=== PATIENT | female | born 1990 | race American Indian/Alaskan Native ===

== ENCOUNTER 2016-04-18 17:55 | Outpatient (CLI) | payer MEDICAID ==
[2016-04-18 18:21] VITALS: BP 121/63
[2016-04-18] MEDS ORDERED: LACTATED RINGERS 1,000 ML IV ONE (18:28)
[2016-04-18 20:19] LABS: Bacteria,Urine 1+ /HPF (Negative); Bilirubin,Urine NEG (Negative); Blood,Urine NEG (Negative); Ketones,Urine NEG (Negative); Leukocyte Esterase,Urine MOD (Negative); Mucus,Urine 2+ /HPF; Nitrite,Urine NEG (Negative); Urobilinogen,Urine < 2.0 mg/dL (<2.0)
--- NOTE | 2016-04-19 07:48 | Ultrasound Report ---
OB LIMITED INDICATION: Cervical length. COMPARISON: 03/09 2016 TECHNIQUE: Transabdominal grayscale ultrasound with Doppler interrogation. Gestation: Ludwig Heart Rate: 137 BPM Cervical length: 3.3 cm (Normal > 3 cm)
== END 2016-04-18 21:52 | disposition home or self-care (01) ==
LOC: TRG 17:55
PROVIDERS: ATTEND Obstetrics & Gynecology
DX: O47.9 False labor, unspecified (principal); Z3A.00 Weeks of gestation of pregnancy not specified
CPT/HCPCS: 36415; 76815; 81001; 82731; J7120

== ENCOUNTER 2016-05-02 21:53 | Outpatient (CLI) | payer MEDICAID ==
[2016-05-02] MEDS ORDERED: LACTATED RINGERS 500 ML IV ONE (22:48)
[2016-05-03 00:28] LABS: Bacteria,Urine 2+ /HPF (Negative); Bilirubin,Urine NEG (Negative); Blood,Urine SM (Negative); Ketones,Urine NEG (Negative); Leukocyte Esterase,Urine LG (Negative); Nitrite,Urine NEG (Negative); Protein,Urine <15 mg/dL mg/dL (Negative); Urobilinogen,Urine < 2.0 mg/dL (<2.0)
== END 2016-05-02 23:43 | disposition home or self-care (01) ==
LOC: TRG 21:53
PROVIDERS: ATTEND Obstetrics & Gynecology
DX: O47.9 False labor, unspecified (principal); Z3A.00 Weeks of gestation of pregnancy not specified
CPT/HCPCS: 81001

== ENCOUNTER 2016-05-05 07:44 | Inpatient (IN) | payer MEDICAID ==
[2016-05-05] MEDS ORDERED: LACTATED RINGERS 500 ML IV ONE (08:13)
[2016-05-05 09:02] LABS: Basophils % (Auto) 0.5 % (0.0-1.8); Eosinophils % (Auto) 1.9 % (0.0-4.3); Hematocrit 29.2 % (30.3-42.9); Mean Corpuscular HGB Conc 31 % (30-34); Mean Corpuscular Volume 75 fl (79-97); Platelet Count 207 K/mm3 (140-440); Red Blood Count 3.88 M/mm3 (3.65-5.03); White Blood Count 11.4 K/mm3 (4.5-11.0)
[2016-05-05 09:17] LABS: Mean Corpuscular Hemoglobin 23 pg (28-32); Red Cell Distribution Width 21.3 % (13.2-15.2)
--- NOTE | 2016-05-05 11:06 | History and Physical Report ---
History of Present Illness Date of examination: 05/05/16 Date of admission: 05/05/16 10:41 Chief complaint: Leaking fluid since 0630 History of present illness: Pt is a 26yo BF EDC 06/04/16; EGA 35 5/7 weeks presents to L&D complaining of SROM clear fluid at 0630 today followed by irregular contractions. Ob u/s showed VINEET 8.3, Cephalic EFW 2980gms and has obvious gross leaking on exam. She received care at [facility] since 14 weeks and course has been unremarkable except for admission for cervical insufficiency earlier during the not requiring a cervical cerclage. records are available and GBS is unknown. 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 History: herpes Family/Genetic History: diabetes, heart disease, hypertension Social history: no significant social history, single - Obstetrical History Expected Date of Delivery: 06/04/16 Actual Gestation: 35 Week(s) 5 Day(s) : 1 Medications and Allergies Allergies Allergy/AdvReac Type Severity Reaction Status Date / Time No Known Allergies Allergy Verified 05/05/16 08:09 Home Medications Medication Instructions Recorded Confirmed Last Taken Type Pnv with Ca,No.72/Iron/FA [Pnv 1 tab PO DAILY 04/18/16 05/05/16 05/04/16 09:00 History Plus Multivit Tab] 1 Review of Systems All systems: negative - Vital Signs Vital signs: Vital Signs Pulse Pulse Ox 104 H 97 05/05/16 08:05 05/05/16 08:05 Temp Pulse Resp BP Pulse Ox 98.9 F 89 18 124/75 97 05/05/16 08:17 05/05/16 09:35 05/05/16 08:17 05/05/16 08:06 05/05/16 09:35 - Physical Exam Breasts: Positive: deferred Cardiovascular: Regular rate Lungs: Positive: Clear to auscultation Abdomen: Positive: normal appearance, soft Genitourinary (Female): Positive: normal external genitalia Vagina: Positive: normal moisture Uterus: Positive: enlarged Extremities: Positive: normal - Obstetrical FHR: category 1 Uterine Contraction Monitor Mode: External Cervical Dilatation: 4 Cervical Effacement Percentage: 50 station: -2 Uterine Contraction Pattern: Irregular Uterine Tone Measurement Phase: Contraction Uterine Contraction Intensity: Mild Results Result Diagrams: 05/05/16 08:28 Abnormal lab results 05/05/16 Range/Units 08:28 WBC 11.4 H (4.5-11.0) K/mm3 Hgb 9.0 L (10.1-14.3) gm/dl Hct 29.2 L (30.3-42.9) % MCV 75 L (79-97) fl MCH 23 L (28-32) pg RDW 21.3 H (13.2-15.2) % Seg Neutrophils % 70.2 H (40.0-70.0) % Seg Neutrophils # 8.0 H (1.8-7.7) K/mm3 All other labs normal. Ultrasound: report reviewed ([place]wig, Cephalic, VINEET 8.3, EFW 2980gms) Assessment and Plan - Patient Problems (1) 35 weeks gestation of Diagnosis Date: 05/05/16 Current Visit: Yes Status: Acute Plan to address problem: A: IUP @ 35 5/7 weeks PPROM - stable Unknown GBS P: Admit to L&D for expectant vaginal delivery IV Ampicillin (2) premature rupture of membranes (PPROM) with onset of labor after 24 hours of rupture in third trimester, antepartum Diagnosis Date: 05/05/16 Current Visit: Yes Status: Acute
[2016-05-05] MEDS ORDERED: SUBLIMAZE IV PRN (11:19)
[2016-05-05] MEDS ORDERED: BRETHINE SUB-Q PRN (11:19)
[2016-05-05] MEDS ORDERED: POLYCILLIN/NS 2 GM/100 ML 100 ML IV ONE (11:19)
[2016-05-05] MEDS ORDERED: MINERAL OIL PO PRN (11:19)
[2016-05-05] MEDS ORDERED: BRETHINE IVP PRN (11:19)
[2016-05-05] MEDS ORDERED: NARCAN 0.4 MG/1 ML IV PRN (11:19)
[2016-05-05] MEDS ORDERED: ZOFRAN IV PRN ×2 (11:19→21:03)
[2016-05-05] MEDS ORDERED: STADOL IV PRN (11:19)
[2016-05-05] MEDS ORDERED: PITOCin/NS 30 UNIT/500ML 500 ML IV SCH (12:00)
[2016-05-05] MEDS ORDERED: PITOCin/NS 20 UNIT/1000ML DRIP 1,000 ML IV SCH ×2 (12:00→22:00)
[2016-05-05] MEDS: PITOCin/NS 30 UNIT/500ML 500 ML IV SCH ×6 (12:42→17:42)
[2016-05-05] MEDS: LACTATED RINGERS 1,000 ML IV SCH ×3 (13:15→16:17)
[2016-05-05] MEDS ORDERED: ePHEDrine SULFATE ONE (14:36)
[2016-05-05] MEDS: ePHEDrine SULFATE IV PRN ×2 (15:14→15:20)
[2016-05-05] MEDS ORDERED: ePHEDrine SULFATE IV PRN (15:14)
--- NOTE | 2016-05-05 15:15 | Anesthesia Consultation ---
Anesthesia Consult and Med Hx Date of service: 05/05/16 - Airway Anesthetic Teeth Evaluation: Good ROM Head & Neck: Adequate Mental/Hyoid Distance: Adequate Mallampati Class: Class II Intubation Access Assessment: Probably Good - Pulmonary Exam CTA: Yes - Cardiac Exam Cardiac Exam: RRR - Pre-Operative Health Status ASA Pre-Surgery Classification: ASA2 Proposed Anesthetic Plan: Epidural, Spinal - Pulmonary Hx Asthma: Yes (last attack in august) COPD: No Hx Pneumonia: No - Cardiovascular System Hx Hypertension: No - Central Nervous System Hx Seizures: No Hx Psychiatric Problems: No - Endocrine Hx Renal Disease: No Hx End Stage Renal Disease: No Hx Hypothyroidism: No Hx Hyperthyroidism: No - Hematic Hx Anemia: Yes Hx Sickle Cell Disease: No - Other Systems Hx Alcohol Use: No Hx Obesity: Yes - Additional Comments Anesthesia Medical History Comments: +
[2016-05-05] MEDS ORDERED: POLYCILLIN/NS 1 GM/50 ML 50 ML IV SCH (15:21)
[2016-05-05] MEDS ORDERED: fentaNYL-BUPIV 2 MCG/ML-0.125% 100 ML EPIDURAL SCH (16:00)
--- NOTE | 2016-05-05 21:02 | Procedure Note ---
OB Delivery Note - Delivery Date of Delivery: 05/05/16 Surgeon: ROSALIND LEONARD Estimated blood loss: 200cc - Vaginal Delivery presentation: vertex Delivery position: OA Intrapartum events: labor-<37 weeks, PROM->1hr before delivery Delivery induction: oxytocin Delivery augmentation: pitocin Delivery monitor: external FHT, external uterine Route of delivery: Delivery placenta: spontaneous Delivery cord: nuchal cord (x1) Episiotomy: none Delivery laceration: 2nd degree (perineal) Delivery repair: vicryl Anesthesia: epidural - Infant A at 1 minute: 8 at 5 minutes: 9 Infant Gender: Female (2538gms)
[2016-05-05] MEDS ORDERED: TYLENOL PO PRN (21:03)
[2016-05-05] MEDS ORDERED: NORCO 5/325 PO PRN (21:03)
[2016-05-05] MEDS ORDERED: ANUCORT-HC PR PRN (21:03)
[2016-05-05] MEDS ORDERED: DERMOPLAST TP PRN (21:03)
[2016-05-05] MEDS ORDERED: PHENERGAN PO PRN (21:03)
[2016-05-05] MEDS ORDERED: BENADRYL PO PRN (21:03)
[2016-05-05] MEDS ORDERED: DULCOLAX PR PRN (21:03)
[2016-05-05] MEDS ORDERED: PHENERGAN PR PRN (21:03)
[2016-05-05] MEDS ORDERED: MILK OF MAGNESIA PO PRN (21:03)
[2016-05-05] MEDS ORDERED: TUCKS PAD TP PRN (21:03)
[2016-05-05] MEDS ORDERED: LANSINOH TP PRN (21:03)
[2016-05-05] MEDS ORDERED: SODIUM CHLORIDE FLUSH SYRINGE 10 ML IV NR (22:00)
[2016-05-05] MEDS ORDERED: SENOKOT S PO SCH (22:00)
[2016-05-06] MEDS: MOTRIN PO SCH ×4 (00:36→23:05)
[2016-05-06] MEDS ORDERED: BOOSTRIX IM ONE (06:00)
[2016-05-06 09:23] LABS: Hemoglobin 8.1 gm/dl (10.1-14.3)
--- NOTE | 2016-05-06 09:32 | Progress Note ---
Assessment and Plan A: PPD #1 - delivery 35 +5 weeks P: Discharge home tomorrow Discharge instructions given Subjective - Subjective Date of service: 05/06/16 Principal diagnosis: delivery Patient reports: appetite normal : doing well Objective - Vital Signs Latest vital signs: Vital Signs Temp Pulse Pulse Resp BP BP Pulse Ox 05/06/16 03:38 98.6 F 95 H 20 116/67 05/06/16 00:38 98.4 F 95 H 20 125/72 05/05/16 23:12 93 H 120/73 05/05/16 22:53 94 H 120/63 05/05/16 22:38 96 H 116/68 05/05/16 22:23 106 H 122/73 05/05/16 22:08 97 H 127/75 05/05/16 21:54 100 H 118/79 05/05/16 21:38 101 H 121/64 05/05/16 21:23 96 H 131/69 05/05/16 21:01 104 H 123/66 05/05/16 20:56 110 H 117/58 05/05/16 20:51 108 H 118/54 05/05/16 20:46 146 H 155/69 05/05/16 20:42 131 H 150/58 05/05/16 20:36 125 H 127/80 05/05/16 20:32 117 H 132/89 05/05/16 20:26 126 H 141/77 05/05/16 20:21 117 H 127/79 05/05/16 20:16 117 H 144/74 05/05/16 20:11 107 H 142/86 05/05/16 20:06 121 H 144/83 98 05/05/16 20:04 102 H 94 05/05/16 20:02 97 H 131/83 05/05/16 20:01 116 H 98 05/05/16 19:57 101 H 135/78 05/05/16 19:56 112 H 100 05/05/16 19:51 100 H 136/79 100 05/05/16 19:46 95 H 131/72 100 05/05/16 19:43 96 H 134/73 05/05/16 19:41 105 H 100 05/05/16 19:37 100 H 135/75 05/05/16 19:36 110 H 100 05/05/16 19:31 96 H 127/78 100 05/05/16 19:27 91 H 115/76 05/05/16 19:26 105 H 100 05/05/16 19:22 93 H 122/77 05/05/16 19:21 105 H 100 05/05/16 19:16 90 119/75 100 05/05/16 19:11 96 H 120/76 100 05/05/16 19:08 100 H 136/76 05/05/16 19:06 100 H 100 05/05/16 19:02 107 H 115/78 05/05/16 19:01 97 H 100 05/05/16 18:56 93 H 115/68 100 05/05/16 18:51 98 H 115/74 100 05/05/16 18:48 93 H 120/77 05/05/16 18:46 98 H 100 05/05/16 18:41 97 H 125/78 100 05/05/16 18:36 94 H 121/70 100 05/05/16 18:31 94 H 126/73 98 05/05/16 18:28 90 123/70 05/05/16 18:26 92 H 100 05/05/16 18:21 91 H 121/70 100 05/05/16 18:16 95 H 118/65 100 05/05/16 18:11 93 H 125/66 100 05/05/16 18:06 93 H 131/77 100 05/05/16 18:02 93 H 131/79 05/05/16 18:01 98 H 100 05/05/16 17:58 95 H 124/73 05/05/16 17:56 98 H 100 05/05/16 17:51 93 H 131/77 100 05/05/16 17:46 99 H 128/75 100 05/05/16 17:41 93 H 134/78 98 05/05/16 17:37 95 H 130/78 05/05/16 17:36 100 H 100 05/05/16 17:31 93 H 126/79 100 05/05/16 17:27 93 H 128/78 05/05/16 17:26 98 H 100 05/05/16 17:22 89 128/76 05/05/16 17:21 93 H 100 05/05/16 17:17 90 127/80 05/05/16 17:16 95 H 100 05/05/16 17:11 87 127/73 100 05/05/16 17:07 92 H 130/76 05/05/16 17:06 93 H 100 05/05/16 17:01 95 H 130/76 100 05/05/16 16:56 97 H 131/78 96 05/05/16 16:54 97.0 F L 18 96 05/05/16 16:51 97 H 124/71 96 05/05/16 16:50 103 H 93 05/05/16 16:46 93 H 117/65 96 05/05/16 16:42 97 H 117/60 05/05/16 16:41 103 H 97 05/05/16 16:36 96 H 114/61 93 05/05/16 16:34 95 H 94 05/05/16 16:32 91 H 121/68 05/05/16 16:31 96 H 97 05/05/16 16:26 99 H 121/67 96 05/05/16 16:22 103 H 124/62 05/05/16 16:21 108 H 95 05/05/16 16:20 95 H 94 05/05/16 16:18 106 H 125/64 05/05/16 16:16 105 H 96 05/05/16 16:11 115 H 111/57 96 05/05/16 16:10 113 H 94 05/05/16 16:06 103 H 122/62 96 05/05/16 16:03 108 H 117/59 05/05/16 16:01 108 H 117/58 97 05/05/16 15:56 113 H 121/67 95 05/05/16 15:51 112 H 117/64 96 05/05/16 15:46 117 H 123/60 97 05/05/16 15:45 18 117/64 05/05/16 15:42 117 H 120/55 05/05/16 15:41 111 H 94 05/05/16 15:38 106 H 94 05/05/16 15:36 106 H 118/57 96 05/05/16 15:32 113 H 93 05/05/16 15:31 117 H 108/55 96 05/05/16 15:26 98.0 F 107 H 18 97 05/05/16 15:25 104 H 115/55 05/05/16 15:23 108 H 123/60 05/05/16 15:21 103 H 129/60 92 05/05/16 15:19 93 H 137/63 05/05/16 15:18 92 H 127/62 05/05/16 15:17 91 H 93 05/05/16 15:16 96 H 87/52 96 05/05/16 15:14 116 H 78/43 05/05/16 15:11 99 H 121/65 81 L 05/05/16 15:09 98 H 126/67 05/05/16 15:07 99 H 138/76 05/05/16 15:06 98 H 98 05/05/16 15:05 101 H 135/77 05/05/16 15:03 100 H 130/75 05/05/16 15:02 111 H 135/79 05/05/16 15:01 110 H 94 05/05/16 14:36 91 H 121/82 05/05/16 14:08 90 114/73 05/05/16 13:37 100 H 131/77 05/05/16 13:06 96 H 127/67 05/05/16 12:26 96 H 110/70 05/05/16 11:08 83 119/75 05/05/16 11:00 98.0 F 18 05/05/16 09:35 89 97 Intake and Output 05/05/16 05/06/16 05/06/16 22:59 06:59 14:59 Intake Total 2401.2 730 Output Total 800 1200 Balance 1601.2 -470 Intake: IV 2401.2 250 Polycillin/Ns 2 gm/100 ml 100 100 ml @ 100 mls/hr IV ONCE ONE Rx#:[id number] Polycillin/Ns 1 gm/50 ml 50 50 ml @ 100 mls/hr IV Q4HR LUCIO Rx#:[id number] Lactated Ringers 1,000 ml 2230 @ 125 mls/hr IV DIRECT LUCIO Rx#:[id number] PITOCin/NS 20 UNIT/1000ML 250 DRIP 1,000 ML @ 125 mls/ hr IV DIRECT LUCIO Rx#: [id number] PITOCin/NS 30 UNIT/500ML 21.2 500 ML @ 4 mls/hr IV TITR LUCIO Rx#:[id number] Intake, Free Water 480 Output: Urine 800 1200 Void 1200 Indwelling Catheter 800 Other: Total, Output Amount 800 600 Estimated Blood Loss 200 - Exam Breasts: Present: deferred Cardiovascular: Present: Regular rate Lungs: Present: Clear to auscultation Abdomen: Present: soft Vulva: both: normal Uterus: Present: fundal height below umbilicus Extremities: Present: normal Deep Tendon Reflex Grade: Normal +2 - Labs Labs: Abnormal lab results 05/06/16 Range/Units 09:09 Hgb 8.1 L (10.1-14.3) gm/dl Hct 26.0 L (30.3-42.9) %
--- NOTE | 2016-05-06 09:32 | Discharge Summary ---
Providers - Providers Date of Admission: 05/05/16 10:41 Date of discharge: 05/07/16 Attending physician: ROSALIND HIRSCH MD Primary care physician: ROSALIND HIRSCH MD Hospitalization Reason for admission: active labor, rupture of membranes Delivery: Episiotomy: none Laceration: 2nd degree complications: none Discharge diagnosis: delivery [place] baby: female Condition at discharge: Good Disposition: DISCHARGED TO HOME OR SELFCARE Plan - Provider Discharge Summary Activity: routine, no sex for 6 weeks, no strenuous exercise Diet: routine Additional instructions: [] Smoking cessation referral if applicable(refer to patient education folder for contact #) [] Refer to [facility]'s [facility] Booklet Call your doctor immediately for: * Fever > 100.5 * Heavy vaginal bleeding ( >1 pad per hour) * Severe persistent headache * Shortness of breath * Reddened, hot, painful area to leg or breast * Drainage or odor from incision. * Keep incision clean and dry at all times and follow doctor's instructions regarding bathing/showering - Follow up plan Follow up: [facility] [Provider Group] - 6 Weeks
--- NOTE | 2016-05-06 10:03 | Ultrasound Report ---
OB ULTRASOUND: HISTORY: Spontaneous rupture of membranes. TECHNIQUE: Transabdominal ultrasound with Doppler interrogation. Gestation: dom[place] Position: cephalic Amniotic Fluid: WNL (7-24 cm) VINEET = 8.3 cm Heart Rate: 149 BPM BPD: 8.8 cm = 35 w 2 d HC: 32.6 cm = 37 w 0 d AC: 33.8 cm = 37 w 5 d FL: 6.7 cm = 34 w 4 d HC/AC Ratio: 0.96 Cephalic Index: 79.0 Estimated Weight: 2980 grams (6 lb. 9 oz.) Clinical age = 35 w 5 d EDC: 2-17 US Gest. Age = 36 w 1 d EDC: 06-01-16
[2016-05-06] MEDS: PRENATAL VITAMIN PO SCH (10:16)
[2016-05-06] MEDS: COLACE PO SCH ×2 (10:17→23:05)
[2016-05-06] MEDS: FEOSOL PO SCH ×2 (10:17→23:05)
[2016-05-06] MEDS ORDERED: M-M-R II VACCINE SUB-Q ONE (21:03)
[2016-05-07] MEDS: MOTRIN PO SCH ×2 (05:45→11:35)
[2016-05-07] MEDS: PRENATAL VITAMIN PO SCH (09:40)
[2016-05-07] MEDS: COLACE PO SCH (09:40)
[2016-05-07] MEDS: FEOSOL PO SCH (09:40)
[2016-05-07 12:48] VITALS: BP 126/72
== END 2016-05-07 17:15 | disposition home or self-care (01) | DRG 775 ==
LOC: TRG 07:44 → LD 10:41 → OB 05-06
PROVIDERS: ADMIT Obstetrics & Gynecology; ATTEND Obstetrics & Gynecology
PROC: 3E0S3CZ (ICD-10-PCS; principal; 2016-05-05)
PROC: 0KQM0ZZ Repair Perineum Muscle, Open Approach (ICD-10-PCS; principal; 2016-05-05)
PROC: 00HU33Z Insertion of Infusion Device into Spinal Canal, Percutaneous Approach (ICD-10-PCS; principal; 2016-05-05)
PROC: 10E0XZZ Delivery of Products of Conception, External Approach (ICD-10-PCS; principal; 2016-05-05)
PROC: 3E033VJ Introduction of Other Hormone into Peripheral Vein, Percutaneous Approach (ICD-10-PCS; principal; 2016-05-05)
DX: O42.013 Preterm premature rupture of membranes, onset of labor within 24 hours of rupture, third trimester (principal); O99.52 Diseases of the respiratory system complicating childbirth; J45.909 Unspecified asthma, uncomplicated; O99.214 Obesity complicating childbirth; Z68.33 Body mass index [BMI] 33.0-33.9, adult; O69.81X0 Labor and delivery complicated by cord around neck, without compression, not applicable or unspecified; O70.1 Second degree perineal laceration during delivery; Z3A.35 35 weeks gestation of pregnancy; Z37.0 Single live birth; Z86.19 Personal history of other infectious and parasitic diseases
CPT/HCPCS: 36415; 59025; 76816; 85014; 85018; 85025; 86850; 86900; 86901; 88307; 90471; 90715; 99211; A6250; G0463; J0290; J0595; J2405; J2590; J7120